=== PATIENT | male | born 1990 | race African-American/Black ===

== ENCOUNTER 2022-02-25 14:28 | Emergency (ER) | payer OTHER, SELFPAY ==
--- NOTE | ~2022-02-25 | CT_ITS ---
EXAMINATION: CT SOFT TISSUE NECK WITH CONTRAST CLINICAL INFORMATION: Right-sided peritonsillar abscess. COMPARISON: None available. TECHNIQUE: Multidetector helical imaging was performed in the axial plane following the administration of 60 mL of Omnipaque 350 intravenous contrast. Multiple axial reformats and coronal/sagittal reconstructions were created the technologist workstation for review. This CT examination was performed using dose optimization techniques as appropriate, variously including the following: *Automated exposure control. *Adjustment of mA and/or kV according to patient size (this includes techniques or standardized protocols for targeted exams where dose is matched to indication/reason for exam; i.e. extremities or head). *Use of iterative reconstruction technique. DLP: 720 mGy-cm FINDINGS: There is a hypoattenuating collection within the right palantine tonsil with enhancing border, measuring 3.5 x 2.3 x 3 cm. Moderate edema extends along the right lateral wall of the pharynx and slightly along the lateral wall the right piriform sinus. Mild to moderate enlargement of the left palatine tonsils without discrete collection or mass. The palatine tonsils and uvula are abutting within the midline. Moderate to significant narrowing of the posterior oropharyngeal airway and mild to moderate narrowing of the nasopharyngeal airway. Mild fat stranding in the right side of neck. No additional discrete fluid collection within the deep tissues of the neck. Mild effacement of the right paracentral adipose tissue. Otherwise, the premaxillary, retromaxillary, pterygopalatine fossa, orbital apical, left parapharyngeal, and prelaryngeal adipose tissue is maintained. Normal appearance of the parotid, submandibular, and thyroid glands. Scattered subcentimeter lymph nodes bilaterally, none of which are pathologically enlarged or abnormally enhancing. No demonstrated focal lesion or abnormal enhancement within the intrinsic tissues of the tongue or floor of mouth. Normal mucosal contours of the larynx without abnormal enhancement. Normal appearance of the hyoid bone, thyroid cartilage, or cartilaginous trachea. No radiopaque foreign bodies. The atlantooccipital and atlantoaxial articulations remain well aligned. Straightening of the normal cervical lordosis. Otherwise, there is anatomic alignment of the vertebral bodies and posterior elements. No evidence of acute fracture or subluxation of the cervical spine. Mild degenerative loss of C5 and C6 vertebral body heights. Otherwise, the vertebral body heights are maintained. The intervertebral disc spaces are maintained. No evidence of epidural collection. There is no prevertebral soft tissue swelling. Normal opacification of the cervical arterial and venous structures. The visualized portion of the skull base is without significant abnormalities. The visualized paranasal sinuses are clear. The mastoid air cells and middle ear cavities are clear. [place] erosion of the mandibular left-sided 1st molar. No additional demonstrated significant periapical odontogenic disease. CT Upper Chest: The visualized lung apices and upper mediastinum are within normal limits. CT/CT soft tissue neck w con IMPRESSION: There is 3.5 cm peritonsillar abscess within the right palantine tonsil. Mild mucosal edema extending along the right lateral wall of the pharynx into the right piriform sinus. Moderate to significant narrowing of the posterior oropharyngeal airway and mild to moderate narrowing of the nasopharyngeal airway.
[2022-02-25 14:46] VITALS: BP 163/99; PULSE 92; RESP 18; TEMP 37.2; O2SAT 97; BMI 29.1
--- NOTE | 2022-02-25 15:45 | ED.GENADULT ---
HPI - General Adult General Chief complaint: General Medical <Nasrin Yepez NP - Last Filed: 02/25/22 18:28> Stated complaint: abscess on tonsil <DORIS Tang Last Filed: 02/25/22 18:28> Time Seen by Provider: 02/25/22 15:40 <Nasrin Yepez NP - Last Filed: 02/25/22 18:28> Source: patient <Nasrin Yepez NP - Last Filed: 02/25/22 18:28> Mode of arrival: ambulatory <Nasrin Yepez NP - Last Filed: 02/25/22 18:28> Limitations: no limitations <DORIS Tang Last Filed: 02/25/22 18:28> History of Present Illness HPI narrative: 32-year-old male previously healthy here with your days of right-sided sore throat with difficulty swallowing x 4 days. No fevers or chills. Seen at urgent care referred into the emergency department for concern for right peritonsillar abscess. <DORIS Tang Last Filed: 02/25/22 18:28> Related Data Home medications: Previous Rx's Medication Instructions Recorded clindamycin HCl 300 mg capsule 300 mg PO TID 10 days #30 caps 02/25/22 cefuroxime axetil 500 mg tablet 500 mg PO BID 7 days #14 tabs 02/26/22 <DORIS Tang Last Filed: 02/25/22 18:28> Allergies/adverse reactions: Allergies Allergy/AdvReac Type Severity Reaction Status Date / Time No Known Allergies Allergy Verified 02/25/22 14:46 <DORIS Tang Last Filed: 02/25/22 18:28> Review of Systems Review of Systems: Yes all other systems are reviewed and are negative <DORIS Tang Last Filed: 02/25/22 18:28> Constitutional: Constitutional: Reports no additional constitutional complaints, Denies body ache(s), Denies chills, Denies fever(s), Denies headache(s) and Denies weakness <DORIS Tang Last Filed: 02/25/22 18:28> Eyes: Eyes: Reports no additional eye complaints and Denies change in vision <Nasrin Yepez NP - Last Filed: 02/25/22 18:28> ENT: Reports system reviewed and no additional complaints, except as documented, Denies dizziness, Denies headache(s), Denies nasal congestion, Denies nasal discharge, Denies neck pain and Reports sore throat <Nasrin Yepez CORRECTIONAL MANAGER - Last Filed: 02/25/22 18:28> Cardiovascular: Cardiovascular: Reports no additional cardiovascular complaints, Denies chest pain, Denies leg edema and Denies dyspnea <Nasrin Yepez CORRECTIONAL MANAGER - Last Filed: 02/25/22 18:28> Respiratory: Respiratory: Reports no additional respiratory complaints, Denies cough and Denies dyspnea <Nasrin Yepez CORRECTIONAL MANAGER - Last Filed: 02/25/22 18:28> Gastrointestinal: Gastrointestinal: Reports no additional gastrointestinal complaints, Denies abdominal pain, Denies diarrhea, Denies nausea and Denies vomiting <Nasrin Yepez NP - Last Filed: 02/25/22 18:28> Genitourinary: Genitourinary: Denies urinary incontinence <Nasrin Yepez NP - Last Filed: 02/25/22 18:28> Musculoskeletal: Musculoskeletal: Reports no additional musculoskeletal complaints, Denies back pain, Denies arthralgias, Denies joint swelling, Denies neck pain, Denies numbness and Denies tingling <Nasrin Yepez NP - Last Filed: 02/25/22 18:28> Integumentary/Breasts: Skin/Breast: Reports system reviewed and no additional complaints, except as docu and Denies rash <Nasrin Yepez NP - Last Filed: 02/25/22 18:28> Neurologic: Reports system reviewed and no additional complaints, except as documented, Denies dizziness, Denies headache(s), Denies numbness, Denies tingling and Denies weakness <Nasrin Yepez NP - Last Filed: 02/25/22 18:28> PMFSH Past Medical History Attestation statement: The following information was validated with the patient. <Nasrin Yepez NP - Last Filed: 02/25/22 18:28> Source: old records reviewed and nursing notes reviewed <Nasrin Yepez NP - Last Filed: 02/25/22 18:28> Social History Social History: Social History Advance Directives: No Advance Directives Information Provided: No <Nasrin Yepez NP - Last Filed: 02/25/22 18:28> Physical Exam ED Vital Signs: Vital Signs - 24 hr 02/25/22 14:46 02/25/22 19:16 Temperature 98.9 F 98.9 F Pulse Rate 92 82 Respiratory Rate 18 18 Blood Pressure 163/99 H 166/94 H Pulse Oximetry 97 100 Oxygen Delivery Method Room Air Room Air BMI result Body Mass Index 29.1 <Nasrin Yepez NP - Last Filed: 02/25/22 18:28> Vital Signs - 24 hr 02/25/22 14:46 02/25/22 19:16 Temperature 98.9 F 98.9 F Pulse Rate 92 82 Respiratory Rate 18 18 Blood Pressure 163/99 H 166/94 H Pulse Oximetry 97 100 Oxygen Delivery Method Room Air Room Air BMI result Body Mass Index 29.1 <SEAN Sanchez - Last Filed: 02/25/22 21:14> Vital Signs - 24 hr 02/25/22 14:46 02/25/22 19:16 Temperature 98.9 F 98.9 F Pulse Rate 92 82 Respiratory Rate 18 18 Blood Pressure 163/99 H 166/94 H Pulse Oximetry 97 100 Oxygen Delivery Method Room Air Room Air BMI result Body Mass Index 29.1 <Darrick Chapa MD - Last Filed: 02/27/22 10:49> Const General: cooperative, healthy appearing, comfortable and no acute distress <Nasrin Yepez NP - Last Filed: 02/25/22 18:28> Orientation/consciousness: patient oriented x3 <Nasrin Yepez NP - Last Filed: 02/25/22 18:28> Limitations: no limitations <Nasrin Yepez NP - Last Filed: 02/25/22 18:28> HENMT Other: Tolerating secretion no trismus <Nasrin Yepez NP - Last Filed: 02/25/22 18:28> Head: Yes normal to inspection <Nasrin Yepez NP - Last Filed: 02/25/22 18:28> Ears: hearing grossly normal bilaterally and TM's normal bilaterally <Nasrin Yepez NP - Last Filed: 02/25/22 18:28> General nose exam: Normal external nose present <Nasrin Yepez NP - Last Filed: 02/25/22 18:28> Face and sinus: Yes normal facial exam <Nasrin Yepez NP - Last Filed: 02/25/22 18:28> Mouth: Normal oral and palatal mucosa present <Nasrni Yepez NP - Last Filed: 02/25/22 18:28> Throat: Yes posterior oropharynx normal and Yes peritonsillar mass (Right-side moderate with uvula displacement) <Nasrin Yepez NP - Last Filed: 02/25/22 18:28> Eyes General: appearance normal, both eyes and all related structures <Nasrin Yepez NP - Last Filed: 02/25/22 18:28> Pupils: Equal, round and reactive pupils present <Nasrin Yepez NP - Last Filed: 02/25/22 18:28> Neck Neck: Yes normal visual inspection, Yes full ROM, Yes no lymphadenopathy and Yes no meningeal signs <Nasrin Yepez NP - Last Filed: 02/25/22 18:28> Chest Chest palpation & inspection: normal inspection of the chest <Nasrin Yepez NP - Last Filed: 02/25/22 18:28> Resp Effort & Inspection: normal respiratory effort <Nasrin Yepez NP - Last Filed: 02/25/22 18:28> Auscultation: clear to auscultation bilaterally <Nasrin Yepez NP - Last Filed: 02/25/22 18:28> Cardio Rate: regular rate <Nasrin Yepez NP - Last Filed: 02/25/22 18:28> Rhythm: regular rhythm <Nasrin Yepez NP - Last Filed: 02/25/22 18:28> Peripheral pulses: Peripheral pulses 2+ throughout <Nasrin Yepez NP - Last Filed: 02/25/22 18:28> GI Inspection: Yes normal to inspection <Nasrin Yepez NP - Last Filed: 02/25/22 18:28> Palpation (GI): Soft to palpation and nontender <Nasrin Yepez NP - Last Filed: 02/25/22 18:28> Back/Spine/Pelvis Thoracic/Lumbar Spine: thoracic and lumbar spine normal to inspection <Nasrin Yepez NP - Last Filed: 02/25/22 18:28> Skin General skin exam: no rashes or lesions noted <Nasrin Yepez NP - Last Filed: 02/25/22 18:28> Neuro General: patient oriented x3, moves all extremities and no meningeal signs <Nasrin Yepez NP - Last Filed: 02/25/22 18:28> Cranial nerves: Yes Equal, round and reactive pupils present <Nasrin Yepez NP - Last Filed: 02/25/22 18:28> Extrem General: Yes normal to inspection, Yes no pedal edema and Yes no calf tenderness <DORIS Tang Last Filed: 02/25/22 18:28> Course Course Course Narrative: Pending CT results. Overall patient feeling improved. Patient did ask for STI testing. Denies any known exposure. Does reports I want to be safe. Went to [facility] today and tested for gonorrhea/chlamydia. Results pending. Exam not c/w with gonococcal pharyngitis. No need for repeat testing. <Nasrin Yepez NP - Last Filed: 02/25/22 18:28> Reevaluation(s) Reevaluation #1: 1830-Sign out to Danita ESTRADA pending CT results and possible I&D. <Nasrin Yepez NP - Last Filed: 02/25/22 18:28> Reevaluation #2: 2000--CT soft tissue neck w con IMPRESSION: There is 3.5 cm peritonsillar abscess within the right palantine tonsil. Mild mucosal edema extending along the right lateral wall of the pharynx into the right piriform sinus. ? Moderate to significant narrowing of the posterior oropharyngeal airway and mild to moderate narrowing of the nasopharyngeal airway. > bedside I&D performed assisted by Dr. Chapa with success & purulent pus drainage expressed. Patient reports symptomatic improvement after medications given earlier and procedure. Talking in complete sentences, in no respiratory distress. Will observe for 30-45 minutes 2030--on re-evaluation patient reports symptomatic improvement, no active bleeding <SEAN Sanchez - Last Filed: 02/25/22 21:14> Reevaluation #3: call from lab had one bottle gram positive cocci and one gram positive sherly in a different bottle. These are the only positive blood cx. Most likely contaminant. <Darrick Chapa MD - Last Filed: 02/27/22 10:49> Time: 10:47 <Darrick Chapa MD - Last Filed: 02/27/22 10:49> Additional Reevaluation(s): Patient was seen by me and I observed SEAN Bahena's drainage together. <Darrick Chapa MD - Last Filed: 02/27/22 10:49> Procedures Abscess I/D Site: oral <SEAN Sanchez - Last Filed: 02/25/22 21:14> Side (if applicable): right <SEAN Sanchez - Last Filed: 02/25/22 21:14> Local Anesthetic: lidocaine 1% <SEAN Sanchez - Last Filed: 02/25/22 21:14> Amount of anesthesia used (mL): 3 <SEAN Sanchez - Last Filed: 02/25/22 21:14> Technique: incised with blade <SEAN Sanchez - Last Filed: 02/25/22 21:14> Amount of fluid expressed (mL): 10 <SEAN Sanchez Last Filed: 02/25/22 21:14> Sent for culture/gram staining?: No <SEAN Sanchez Last Filed: 02/25/22 21:14> Irrigation: No <SEAN Sanchez Last Filed: 02/25/22 21:14> Packing used?: none <SEAN Sanchez Last Filed: 02/25/22 21:14> Medical Decision Making MDM Narrative Medical decision making narrative: 32-year-old male with 4 days of right-sided sore throat with difficulty swallowing. Exam is concerning for right peritonsillar abscess. At this time infection suspected. Labs including blood cultures and lactic acid ordered. Antibiotics ordered. CT with IV contrast ordered. <Nasrin Yepez NP - Last Filed: 02/25/22 18:28> Medical Records Medical records reviewed: Yes I reviewed the patient's medical records. <Nasrin Yepez NP - Last Filed: 02/25/22 18:28> Lab Data Lab results reviewed: Yes I reviewed the patient's lab results. <Nasrin Yepez NP - Last Filed: 02/25/22 18:28> Result diagrams: : 02/25/22 16:21 02/25/22 16:21 <Nasrin Yepez NP - Last Filed: 02/25/22 18:28> Labs: Lab Results 02/25/22 02/25/22 02/25/22 Range/Units 16:21 16:21 16:21 WBC 9.8 (4.8-10.8) X10*3/uL RBC 5.41 (4.60-5.80) X10*6/uL Hgb 13.5 L (14.0-18.0) g/dl Hct 42.1 (42.0-52.0) % MCV 77.8 L (80.0-98.0) fL MCH 25.0 L (27.0-33.0) pg MCHC 32.1 (31.0-36.0) g/dl RDW 14.9 (11.0-16.0) % Plt Count 385 (160-400) X10*3/uL MPV 10.0 (9.4-12.4) fL Immature Gran % (Auto) 0.2 (0.0-0.4) % Neut % (Auto) 65.9 (45-73) % Lymph % (Auto) 26.7 (20-40) % Maverick % (Auto) 6.8 (2-11) % Eos % (Auto) 0.2 (0-4) % Baso % (Auto) 0.2 (0-2) % Lymph # (Auto) 2.6 (1.2-4.9) X10*3/uL Maverick # (Auto) 0.7 (0.1-1.2) X10*3/uL Eos # (Auto) 0.0 (0.0-0.4) X10*3/uL Baso # (Auto) 0.0 (0.0-0.2) X10*3/uL Abs Immat Gran (auto) 0.02 (0.00-0.03) X10*3/uL Absolute Neuts (auto) 6.4 (2.0-8.3) x10*3/uL Absolute Nucleated RBC 0.000 (0.0-0.012) X10*3/uL Nucleated RBC % (auto) 0.0 (0.0-0.2) /100WBC Sodium 138 (135-145) mmol/L Potassium 3.5 (3.3-5.1) mmol/L Chloride 102 (96-108) mmol/L Carbon Dioxide 26 (22-29) mmol/L Anion Gap 14 (12-20) BUN 6 L (9-16) mg/dL Creatinine 0.95 (0.5-1.4) mg/dL Estim Creat Clear Calc 116.9 Estimated GFR > 60 Random Glucose 91 (60-115) mg/dL Lactic Acid 1.0 (0.5-2.0) mmol/L Calcium 9.5 (8.4-10.2) mg/dL COVID-19 (SAROJ) (Negative) COVID-19 Clin Com S. pyogenes GrpA LAMAR (Negative) 02/25/22 02/25/22 Range/Units 16:21 16:21 WBC (4.8-10.8) X10*3/uL RBC (4.60-5.80) X10*6/uL Hgb (14.0-18.0) g/dl Hct (42.0-52.0) % MCV (80.0-98.0) fL MCH (27.0-33.0) pg MCHC (31.0-36.0) g/dl RDW (11.0-16.0) % Plt Count (160-400) X10*3/uL MPV (9.4-12.4) fL Immature Gran % (Auto) (0.0-0.4) % Neut % (Auto) (45-73) % Lymph % (Auto) (20-40) % Maverick % (Auto) (2-11) % Eos % (Auto) (0-4) % Baso % (Auto) (0-2) % Lymph # (Auto) (1.2-4.9) X10*3/uL Maverick # (Auto) (0.1-1.2) X10*3/uL Eos # (Auto) (0.0-0.4) X10*3/uL Baso # (Auto) (0.0-0.2) X10*3/uL Abs Immat Gran (auto) (0.00-0.03) X10*3/uL Absolute Neuts (auto) (2.0-8.3) x10*3/uL Absolute Nucleated RBC (0.0-0.012) X10*3/uL Nucleated RBC % (auto) (0.0-0.2) /100WBC Sodium (135-145) mmol/L Potassium (3.3-5.1) mmol/L Chloride (96-108) mmol/L Carbon Dioxide (22-29) mmol/L Anion Gap (12-20) BUN (9-16) mg/dL Creatinine (0.5-1.4) mg/dL Estim Creat Clear Calc Estimated GFR Random Glucose (60-115) mg/dL Lactic Acid (0.5-2.0) mmol/L Calcium (8.4-10.2) mg/dL COVID-19 (SAROJ) Negative (Negative) COVID-19 Clin Com See Note S. pyogenes GrpA LAMAR Negative (Negative) <Nasrin Yepez, CORRECTIONAL MANAGER - Last Filed: 02/25/22 18:28> Lab Results 02/25/22 02/25/22 02/25/22 Range/Units 16:21 16:21 16:21 WBC 9.8 (4.8-10.8) X10*3/uL RBC 5.41 (4.60-5.80) X10*6/uL Hgb 13.5 L (14.0-18.0) g/dl Hct 42.1 (42.0-52.0) % MCV 77.8 L (80.0-98.0) fL MCH 25.0 L (27.0-33.0) pg MCHC 32.1 (31.0-36.0) g/dl RDW 14.9 (11.0-16.0) % Plt Count 385 (160-400) X10*3/uL MPV 10.0 (9.4-12.4) fL Immature Gran % (Auto) 0.2 (0.0-0.4) % Neut % (Auto) 65.9 (45-73) % Lymph % (Auto) 26.7 (20-40) % Maverick % (Auto) 6.8 (2-11) % Eos % (Auto) 0.2 (0-4) % Baso % (Auto) 0.2 (0-2) % Lymph # (Auto) 2.6 (1.2-4.9) X10*3/uL Maverick # (Auto) 0.7 (0.1-1.2) X10*3/uL Eos # (Auto) 0.0 (0.0-0.4) X10*3/uL Baso # (Auto) 0.0 (0.0-0.2) X10*3/uL Abs Immat Gran (auto) 0.02 (0.00-0.03) X10*3/uL Absolute Neuts (auto) 6.4 (2.0-8.3) x10*3/uL Absolute Nucleated RBC 0.000 (0.0-0.012) X10*3/uL Nucleated RBC % (auto) 0.0 (0.0-0.2) /100WBC Sodium 138 (135-145) mmol/L Potassium 3.5 (3.3-5.1) mmol/L Chloride 102 (96-108) mmol/L Carbon Dioxide 26 (22-29) mmol/L Anion Gap 14 (12-20) BUN 6 L (9-16) mg/dL Creatinine 0.95 (0.5-1.4) mg/dL Estim Creat Clear Calc 116.9 Estimated GFR > 60 Random Glucose 91 (60-115) mg/dL Lactic Acid 1.0 (0.5-2.0) mmol/L Calcium 9.5 (8.4-10.2) mg/dL COVID-19 (SAROJ) (Negative) COVID-19 Clin Com S. pyogenes GrpA LAMAR (Negative) 02/25/22 02/25/22 Range/Units 16:21 16:21 WBC (4.8-10.8) X10*3/uL RBC (4.60-5.80) X10*6/uL Hgb (14.0-18.0) g/dl Hct (42.0-52.0) % MCV (80.0-98.0) fL MCH (27.0-33.0) pg MCHC (31.0-36.0) g/dl RDW (11.0-16.0) % Plt Count (160-400) X10*3/uL MPV (9.4-12.4) fL Immature Gran % (Auto) (0.0-0.4) % Neut % (Auto) (45-73) % Lymph % (Auto) (20-40) % Maverick % (Auto) (2-11) % Eos % (Auto) (0-4) % Baso % (Auto) (0-2) % Lymph # (Auto) (1.2-4.9) X10*3/uL Maverick # (Auto) (0.1-1.2) X10*3/uL Eos # (Auto) (0.0-0.4) X10*3/uL Baso # (Auto) (0.0-0.2) X10*3/uL Abs Immat Gran (auto) (0.00-0.03) X10*3/uL Absolute Neuts (auto) (2.0-8.3) x10*3/uL Absolute Nucleated RBC (0.0-0.012) X10*3/uL Nucleated RBC % (auto) (0.0-0.2) /100WBC Sodium (135-145) mmol/L Potassium (3.3-5.1) mmol/L Chloride (96-108) mmol/L Carbon Dioxide (22-29) mmol/L Anion Gap (12-20) BUN (9-16) mg/dL Creatinine (0.5-1.4) mg/dL Estim Creat Clear Calc Estimated GFR Random Glucose (60-115) mg/dL Lactic Acid (0.5-2.0) mmol/L Calcium (8.4-10.2) mg/dL COVID-19 (SAROJ) Negative (Negative) COVID-19 Clin Com See Note S. pyogenes GrpA LAMAR Negative (Negative) <SEAN Sanchez - Last Filed: 02/25/22 21:14> Lab Results 02/25/22 02/25/22 02/25/22 Range/Units 16:21 16:21 16:21 WBC 9.8 (4.8-10.8) X10*3/uL RBC 5.41 (4.60-5.80) X10*6/uL Hgb 13.5 L (14.0-18.0) g/dl Hct 42.1 (42.0-52.0) % MCV 77.8 L (80.0-98.0) fL MCH 25.0 L (27.0-33.0) pg MCHC 32.1 (31.0-36.0) g/dl RDW 14.9 (11.0-16.0) % Plt Count 385 (160-400) X10*3/uL MPV 10.0 (9.4-12.4) fL Immature Gran % (Auto) 0.2 (0.0-0.4) % Neut % (Auto) 65.9 (45-73) % Lymph % (Auto) 26.7 (20-40) % Maverick % (Auto) 6.8 (2-11) % Eos % (Auto) 0.2 (0-4) % Baso % (Auto) 0.2 (0-2) % Lymph # (Auto) 2.6 (1.2-4.9) X10*3/uL [place]verick # (Auto) 0.7 (0.1-1.2) X10*3/uL Eos # (Auto) 0.0 (0.0-0.4) X10*3/uL Baso # (Auto) 0.0 (0.0-0.2) X10*3/uL Abs Immat Gran (auto) 0.02 (0.00-0.03) X10*3/uL Absolute Neuts (auto) 6.4 (2.0-8.3) x10*3/uL Absolute Nucleated RBC 0.000 (0.0-0.012) X10*3/uL Nucleated RBC % (auto) 0.0 (0.0-0.2) /100WBC Sodium 138 (135-145) mmol/L Potassium 3.5 (3.3-5.1) mmol/L Chloride 102 (96-108) mmol/L Carbon Dioxide 26 (22-29) mmol/L Anion Gap 14 (12-20) BUN 6 L (9-16) mg/dL Creatinine 0.95 (0.5-1.4) mg/dL Estim Creat Clear Calc 116.9 Estimated GFR > 60 Random Glucose 91 (60-115) mg/dL Lactic Acid 1.0 (0.5-2.0) mmol/L Calcium 9.5 (8.4-10.2) mg/dL COVID-19 (SAROJ) (Negative) COVID-19 Clin Com S. pyogenes GrpA LAMAR (Negative) 02/25/22 02/25/22 Range/Units 16:21 16:21 WBC (4.8-10.8) X10*3/uL RBC (4.60-5.80) X10*6/uL Hgb (14.0-18.0) g/dl Hct (42.0-52.0) % MCV (80.0-98.0) fL MCH (27.0-33.0) pg MCHC (31.0-36.0) g/dl RDW (11.0-16.0) % Plt Count (160-400) X10*3/uL MPV (9.4-12.4) fL Immature Gran % (Auto) (0.0-0.4) % Neut % (Auto) (45-73) % Lymph % (Auto) (20-40) % Maverick % (Auto) (2-11) % Eos % (Auto) (0-4) % Baso % (Auto) (0-2) % Lymph # (Auto) (1.2-4.9) X10*3/uL [place]ick # (Auto) (0.1-1.2) X10*3/uL Eos # (Auto) (0.0-0.4) X10*3/uL Baso # (Auto) (0.0-0.2) X10*3/uL Abs Immat Gran (auto) (0.00-0.03) X10*3/uL Absolute Neuts (auto) (2.0-8.3) x10*3/uL Absolute Nucleated RBC (0.0-0.012) X10*3/uL Nucleated RBC % (auto) (0.0-0.2) /100WBC Sodium (135-145) mmol/L Potassium (3.3-5.1) mmol/L Chloride (96-108) mmol/L Carbon Dioxide (22-29) mmol/L Anion Gap (12-20) BUN (9-16) mg/dL Creatinine (0.5-1.4) mg/dL Estim Creat Clear Calc Estimated GFR Random Glucose (60-115) mg/dL Lactic Acid (0.5-2.0) mmol/L Calcium (8.4-10.2) mg/dL COVID-19 (SAROJ) Negative (Negative) COVID-19 Clin Com See Note S. pyogenes GrpA LAMAR Negative (Negative) <Darrick Chapa MD - Last Filed: 02/27/22 10:49> Discharge Plan Discharge Clinical Impression: Abscess, peritonsillar <Nasrin Yepez NP - Last Filed: 02/25/22 18:28> Patient Disposition: Home, Self-Care <Nasrin Yepez NP - Last Filed: 02/25/22 18:28> Additional Instructions: [place] gargle Soft foods Increase fluids at home Return for drooling, inability to swallow, or fever Start taking clindamycin which is an antibiotic. Please follow-up with ENT <Nasrin Yepez NP - Last Filed: 02/25/22 18:28> Prescriptions: New clindamycin HCl 300 mg capsule 300 mg PO TID 10 Days Qty: 30 0RF cefuroxime axetil 500 mg tablet 500 mg PO BID 7 Days Qty: 14 0RF <Nasrin Yepez NP - Last Filed: 02/25/22 18:28> Referrals: Kaleb Jain [Physician] - <Nasrin Yepez NP - Last Filed: 02/25/22 18:28> Stand Alone Forms: Work/School Release <Nasrin Yepez NP - Last Filed: 02/25/22 18:28> Interventions: ED Discharge Assessment Last Done: 02/25/22 21:40 <Nasrin Yepez NP - Last Filed: 02/25/22 18:28> Discharge Date/Time: 02/25/22 21:41 <Nasrin Yepez NP - Last Filed: 02/25/22 18:28>
[2022-02-25 16:26] LABS: MANUAL DIFF FLAG NO
[2022-02-25 16:30] LABS: Basophils Percent Auto 0.2 % (0-2); Eosinophils Percent Auto 0.2 % (0-4); Hematocrit 42.1 % (42.0-52.0); Hemoglobin 13.5 g/dl (14.0-18.0); Imm Gran Abs Auto 0.02 X10*3/uL (0.00-0.03); Imm Gran Pct Auto 0.2 % (0.0-0.4); Lymphocytes Absolute Auto 2.6 X10*3/uL (1.2-4.9); Lymphocytes Percent Auto 26.7 % (20-40); Mean Corpuscular HGB Conc 32.1 g/dl (31.0-36.0); Mean Corpuscular Volume 77.8 fL (80.0-98.0); Monocytes Absolute Auto 0.7 X10*3/uL (0.1-1.2); Monocytes Percent Auto 6.8 % (2-11); Neutrophils Absolute Auto 6.4 x10*3/uL (2.0-8.3); Neutrophils Percent Auto 65.9 % (45-73); Platelet Count 385 X10*3/uL (160-400); Red Blood Count 5.41 X10*6/uL (4.60-5.80); Red Cell Distribution Width 14.9 % (11.0-16.0); White Blood Count 9.8 X10*3/uL (4.8-10.8)
[2022-02-25 16:39] LABS: Strep A Nucleic Acid Negative (Negative)
[2022-02-25 16:48] LABS: Anion Gap 14 (12-20); Blood Urea Nitrogen 6 mg/dL (9-16); Calcium 9.5 mg/dL (8.4-10.2); Carbon Dioxide 26 mmol/L (22-29); Chloride 102 mmol/L (96-108); Creatinine Clr Calc Pharmacy 116.9; Estimated Glomerular Filt Rate > 60; Glucose Random 91 mg/dL (60-115); Potassium 3.5 mmol/L (3.3-5.1); Sodium 138 mmol/L (135-145)
[2022-02-25] MEDS: 0.9 % Sodium Chloride 1,000 ML 999 ML IV (16:48)
[2022-02-25 16:50] LABS: COVID-19 Test Negative (Negative); IDNOW Serial# 16C4AD1C
[2022-02-25] MEDS: Ketorolac Tromethamine 30 MG/ML VIAL IVPUSH (17:18)
[2022-02-25] MEDS: dexAMETHasone sod phosphate 10 MG/ML VIAL IVPUSH (17:18)
[2022-02-25] MEDS: Clindamycin Phosphate/D5W 600 MG/50 ML PIGGYBACK 100 MG IV (17:18)
[2022-02-25] MEDS: iohexoL 350 MG/ML 100 ML INFUS..BTL IV (17:20)
[2022-02-25 19:16] VITALS: BP 166/94; PULSE 82; RESP 18; TEMP 37.2; O2SAT 100
[2022-02-25] MEDS: Lidocaine HCl 4 % Laryng-O-Jet 4 ML 1 APPL TOPICAL (19:29)
[2022-02-25] MEDS: Lidocaine HCl 1 % MPF 5 ML VIAL SUBCUT (19:29)
== END 2022-02-25 21:41 | disposition home or self-care (01) ==
PROVIDERS: Nurse Practitioner Family; Emergency Provider Emergency Medicine
DX: J36 Peritonsillar abscess (principal); Z20.822 Contact with and (suspected) exposure to COVID-19
CPT/HCPCS: 42700; 70491; 80048; 83605; 85025; 87040; 87147; 87205; 87635; 87651; 96361; 96365; 96375; 99284; J1100; J1885; Q9967

== ENCOUNTER 2023-08-15 22:24 | Emergency (ER) | payer OTHER, SELFPAY ==
[2023-08-15 22:31] VITALS: BP 190/120; PULSE 75; RESP 18; TEMP 37; O2SAT 98; BMI 36.0
[2023-08-15] MEDS: Amoxicillin 500 MG CAPSULE PO (23:25)
[2023-08-15] MEDS: Ibuprofen 400 MG TABLET PO (23:25)
--- NOTE | 2023-08-15 23:27 | PC.NURSE ---
pt medicated according to oct pt reported 2/10 pain refused oxycodone po dose
--- NOTE | 2023-08-15 23:43 | ED.DENTAL ---
HPI - Dental/Oral General Chief complaint: Dental/Oral Stated complaint: severe tooth pain Time Seen by Provider: 08/15/23 23:02 Source: patient and family Mode of arrival: ambulatory Limitations: no limitations History of Present Illness HPI Narrative: 33-year-old male came in for evaluation of dental pain for 3 days. Cannot get to the dentist because of the holiday. Related Data Previous Rx's Medication Instructions Recorded clindamycin HCl 300 mg capsule 300 mg PO TID 10 days #30 caps 02/25/22 cefuroxime axetil 500 mg tablet 500 mg PO BID 7 days #14 tabs 02/26/22 amoxicillin 500 mg tablet 500 mg PO Q12H #14 tabs 08/15/23 oxycodone 5 mg tablet 5 mg PO BID PRN pain #7 tabs 08/15/23 Allergies Allergy/AdvReac Type Severity Reaction Status Date / Time No Known Allergies Allergy Verified 02/25/22 14:46 Review of Systems Review of Systems: All other systems are reviewed and are negative Constitutional: Reports as per HPI and Reports no additional constitutional complaints Eyes: Reports as per HPI and Reports no additional eye complaints Reports system reviewed and no additional complaints, except as documented Cardiovascular: Reports as per HPI and Reports no additional cardiovascular complaints Respiratory: Reports as per HPI and Reports no additional respiratory complaints Gastrointestinal: Reports as per HPI and Reports no additional gastrointestinal complaints Genitourinary: Reports no additional female genitourinary complaints Musculoskeletal: Reports no additional musculoskeletal complaints Skin/Breast: Reports system reviewed and no additional complaints, except as docu Psychiatric: Reports no additional psychiatric complaints Endocrine: Reports no additional endocrine complaints Hematologic/Lymphatic: Reports no additional hematologic/lymphatic complaints Allergic/Immunologic: Reports no additional allergic/immunologic complaints Reports system reviewed and no additional complaints, except as documented and Reports Abnormal speech present [facility] Social History Social History Smoked in Last 30 Days: No Use of substances other than those prescribed or required for medical reasons: No Advance Directives: No Advance Directives Information Provided: No Physical Exam Vital Signs: Vital Signs: Last Vital Signs Temp 98.8 F 08/16/23 00:24 Pulse 75 08/16/23 00:24 Resp 17 08/16/23 00:24 BP 172/100 H 08/16/23 00:24 Pulse Ox 98 08/16/23 00:24 O2 Del Method Room Air 08/16/23 00:24 BMI result Body Mass Index 36.0 Vital signs have been reviewed and appear to be correct. Blood pressure elevated likely due to being uncomfortable. Heart rate normal. Respiratory rate normal. Temperature normal. Oxygen saturation normal. Appearance: Alert. Oriented X3. No acute distress. Dental exam: Broke in left lower 2nd molar tooth with swelling and tenderness of the gum around it. No fluctuation or abscess is appreciated. Head: Normal external exam. Normocephalic. Atraumatic. No Blackwell signs noted. No raccoon eyes noted Eyes: PERRLA. EOMI. Conjunctiva and sclera normal. Eyelids normal. ENT: TM's Normal. Pharynx normal. Uvula midline. Moist mucous membranes. No trismus noted. No drooling noted. No muffled voice noted. Neck: Normal inspection. Neck supple. FROM. No adenopathy. Thyroid Normal. No meningeal signs. No neck mass noted. CVS: Normal heart rate and rhythm. Heart sound normal. No murmurs noted. Pulses normal throughout. Respiratory: No respiratory distress. Painless inspiration. Breath sounds normal. No wheezes/rales/rhonchi noted. Chest nontender. No accessory muscle usage noted or decreased air movement noted. Abdomen: Soft and nontender. Bowel sounds normal in all 4 quadrants. No distention noted. No organomegaly noted. No visible injury noted. Back: No CVA tenderness. Full range of motion noted. Skin: Skin warm and dry. Normal skin color. Normal skin turgor. No rashes/lesions/lacerations noted. Extremities: No lower extremity edema. Extremities exhibit normal range of motion. Extremities nontender. Neuro: Oriented X 3. Cranial nerve exam: II-XII are grossly intact No motor deficit. No sensory deficit. Reflexes normal. Course Reevaluation(s) Reevaluation #1: Dental pain/infection Started on amoxicillin/oxycodone/follow-up with the dentist. Patient was instructed to follow-up with PCP for high blood pressure which could be related to ED visit or dental pain. Time: 23:46 Medications Administered Discontinued Medications Generic Name Dose Route Start Last Admin Trade Name Freq PRN Reason Stop Dose Admin Amoxicillin 500 mg 08/15/23 23:16 12/24/23 23:25 Amoxicillin 500 Mg Capsule PO 12/24/23 23:17 500 mg ONCE ONE Administration Ibuprofen 400 mg 08/15/23 23:16 08/15/23 23:25 Ibuprofen 400 Mg Tablet PO 08/15/23 23:17 400 mg ONCE ONE Administration Oxycodone HCl 5 mg 08/15/23 23:16 08/15/23 23:27 Oxycodone Hcl Immed Release 5 Mg Tablet PO 08/15/23 23:17 Not Given ONCE ONE Medical Decision Making Differential Diagnosis Differential Diagnoses: The differential diagnosis associated with the presentation includes (Dental decay, dental infection, gingivitis, dental abscess.) Admission/Observation Consideration of admission/observation: Escalation of care including admission/observation considered Discharge Plan Discharge Clinical Impression: Toothache, Hypertension Patient Disposition: Home, Self-Care Instructions: Toothache (ED) Additional Instructions: Follow-up with your PCP in regard to your elevated blood pressure. Prescriptions: New amoxicillin 500 mg tablet 500 mg PO Q12H Qty: 14 0RF oxycodone 5 mg tablet 5 mg PO BID PRN (Reason: pain) Qty: 7 0RF Rx Instructions: Partial Fill upon patient request. No Action clindamycin HCl 300 mg capsule 300 mg PO TID 10 Days Qty: 30 0RF cefuroxime axetil 500 mg tablet 500 mg PO BID 7 Days Qty: 14 0RF
[2023-08-16 00:24] VITALS: BP 172/100; PULSE 75; RESP 17; TEMP 37.1; O2SAT 98
--- NOTE | 2023-08-16 00:34 | PC.NURSE ---
pt ambulatory at discharge pt denies pain at this time. per dr hendricks pt safe to discharge with elevated BP. pt provided with discharge packet. pt verbalized understanding of discharge plan
== END 2023-08-16 00:36 | disposition home or self-care (01) ==
PROVIDERS: Emergency Provider Emergency Medicine
DX: K08.89 Other specified disorders of teeth and supporting structures (principal); I10 Essential (primary) hypertension
CPT/HCPCS: 99283; 99284